=== PATIENT | female | born 1975 | race Caucasian/White ===

== ENCOUNTER 2023-04-20 11:51 | Emergency (ER) | payer SELFPAY ==
[~2023-04-20] VITALS: Ht 170.2 cm; Wt 90.9 kg
[2023-04-20 12:01] VITALS: BP 149/94; PULSE 110; RESP 18; TEMP 98.5
[2023-04-20 13:05] LABS: COVID AG,FIA SOURCE NASAL SWAB
[2023-04-20 13:25] LABS: SARS-COV2 (COVID) ANTIGEN,FIA Negative (Negative)
[2023-04-20 13:26] LABS: INFLUENZA TYPE A NEGATIVE FOR TYPE A (NEGATIVE); INFLUENZA TYPE B NEGATIVE FOR TYPE B (NEGATIVE)
== END 2023-04-20 16:01 | disposition left against medical advice (07) ==
LOC: EMS 11:51
DX: R53.1 Weakness (principal); R51.9 Headache, unspecified; R50.9 Fever, unspecified; Z20.822 Contact with and (suspected) exposure to COVID-19; Z53.21 Procedure and treatment not carried out due to patient leaving prior to being seen by health care provider
CPT/HCPCS: 87804; 99281; Z7502

== ENCOUNTER 2024-02-11 23:18 | Emergency (ER) | payer MEDICAID ==
[~2024-02-11] VITALS: Ht 170.2 cm; Wt 97.7 kg
[2024-02-11 23:20] VITALS: TEMP 99.6
[2024-02-12 00:15] VITALS: BP 141/119; PULSE 110; RESP 18; O2SAT 98
[2024-02-12] MEDS ORDERED: CEPH-558 PO (01:30)
[2024-02-12] MEDS ORDERED: SULF-261 PO (01:30)
[2024-02-12] MEDS ORDERED: IBUP-1492 PO (01:30)
[2024-02-12] MEDS: SULFAMETHOX/TRIMETH DS 800-160 MG/TABLET PO ONE (01:48)
[2024-02-12] MEDS: CEPHALEXIN MONOHYDRATE 500 MG CAPSULE PO ONE (01:48)
[2024-02-12] MEDS: OxyCODONE HCL/ACETAMINOPHEN 5-325 MG TABLET PO ONE (01:48)
== END 2024-02-12 01:58 | disposition home or self-care (01) ==
LOC: EMS 23:18
DX: L02.31 Cutaneous abscess of buttock (principal); I10 Essential (primary) hypertension; Z98.51 Tubal ligation status
CPT/HCPCS: 10060; 99284; Z7502; Z7610

== ENCOUNTER 2024-02-14 21:53 | Emergency (ER) | payer MEDICAID ==
[~2024-02-14] VITALS: Ht 170.2 cm; Wt 98.2 kg
[~2024-02-14 21:53] MED LIST: CEPH-558 PO; IBUP-1492 PO; SULF-261 PO
[2024-02-14 22:16] VITALS: TEMP 98.6
[2024-02-14 22:18] VITALS: BP 137/90; PULSE 90; RESP 16; O2SAT 99
== END 2024-02-14 23:55 | disposition home or self-care (01) ==
LOC: EMS 21:53
DX: L02.91 Cutaneous abscess, unspecified (principal); I10 Essential (primary) hypertension; Z48.00 Encounter for change or removal of nonsurgical wound dressing; Z98.51 Tubal ligation status
CPT/HCPCS: 99282; Z7502